=== PATIENT | male | born 1995 | race Caucasian/White ===

== ENCOUNTER 2019-06-03 14:47 | Emergency (ER) | payer BC, OTHER ==
[~2019-06-03] VITALS: Ht 172.7 cm; Wt 68.2 kg
[2019-06-03 16:16] VITALS: BP 139/81
== END 2019-06-03 16:23 | disposition home or self-care (01) ==
LOC: EDSEX 14:47 → EDBD 14:47 → M ED 14:47
DX: Z04.1 Encounter for examination and observation following transport accident (principal); V49.49XA Driver injured in collision with other motor vehicles in traffic accident, initial encounter; Y92.410 Unspecified street and highway as the place of occurrence of the external cause; F17.210 Nicotine dependence, cigarettes, uncomplicated

== ENCOUNTER → 2020-08-21 | Outpatient (CLI) | payer OTHER ==
[~2020-08-21] MED LIST: BUPR150T12 PO; BUPR300T92 PO; SUBL100I SC
== END ==
LOC: M LABSMTC 10:11
PROVIDERS: ATTEND Anesthesiology
DX: Z01.812 Encounter for preprocedural laboratory examination (principal); Z11.52 Encounter for screening for COVID-19

== ENCOUNTER 2020-08-26 07:05 | Day surgery (SDC) | payer OTHER ==
[~2020-08-26] VITALS: Ht 170.2 cm; Wt 68.0 kg
[~2020-08-26 07:05] MED LIST changes: +AMPICILLIN SOD/SULBACTAM SOD 3 GM in D5W MINI-BAG PLUS 100 ML IV ONE; +DESFLURANE 240 ML INHALANT As Ordered ONE; +dexameTHASONE 4 MG/ML 1ML VIAL (J1100 PER 1MG) IV ONE
[2020-08-26] MEDS ORDERED: LIDOCAINE 2% 100MG/5ML SDV (FOR ANES.) As Ordered ONE ×3 (07:38→08:03)
[2020-08-26] MEDS ORDERED: propofoL 200 MG/20 ML VIAL As Ordered ONE (07:38)
[2020-08-26] MEDS ORDERED: MIDAZOLAM INJ 2MG/2ML VIAL (J2250 PER 1MG) As Ordered ONE ×2 (07:39→08:32)
[2020-08-26] MEDS ORDERED: ROCURONIUM BROMIDE 50 MG/5 ML VIAL As Ordered ONE (07:39)
[2020-08-26] MEDS ORDERED: fentaNYL 100 MCG/2 ML INJECTION (J3010) As Ordered ONE ×2 (07:40→08:57)
[2020-08-26] MEDS ORDERED: dexameTHASONE 4 MG/ML 1ML VIAL (J1100 PER 1MG) As Ordered ONE (07:40)
[2020-08-26] MEDS ORDERED: ONDANSETRON 4MG/2ML VIAL As Ordered ONE (07:40)
[2020-08-26] MEDS ORDERED: CHLORHEXIDINE GLUCONATE 0.12 % 15ML UDC (PERIDEX ORAL RINSE) As Ordered ONE (08:05)
[2020-08-26] MEDS ORDERED: LIDOCAINE 2% W/ EPINEPHRINE 1.7 ML DENTAL INJ As Ordered ONE (08:05)
[2020-08-26] MEDS ORDERED: LIDOCAINE 2% JELLY 5ML TUBE As Ordered ONE (08:09)
[2020-08-26] MEDS ORDERED: OXYMETAZOLINE 0.05% NASAL SPRAY (AFRIN) As Ordered ONE (08:38)
[2020-08-26] MEDS ORDERED: SUGAMMADEX SODIUM 500 MG/5 ML VIAL (BRIDION) As Ordered ONE (10:06)
[2020-08-26] MEDS ORDERED: ACETAMINOPHEN 1000MG 100ML IV BTL (OFIRMEV) (J0131 PER 10MG) As Ordered ONE (10:11)
[2020-08-26] MEDS ORDERED: KETOROLAC 60MG 2ML VIAL As Ordered ONE (10:13)
[2020-08-26] MEDS ORDERED: oxyCODONE 5MG TAB PO PRN (10:45)
[2020-08-26] MEDS ORDERED: ONDANSETRON 4MG/2ML VIAL IV PRN (10:45)
[2020-08-26] MEDS ORDERED: HYDROMORPHONE HCL 0.5 MG/ 0.5 ML SYRINGE (J1170 PER 1) IV PRN (10:45)
[2020-08-26] MEDS ORDERED: fentaNYL 100 MCG/2 ML INJECTION (J3010) IV PRN (10:45)
[2020-08-26] MEDS ORDERED: LR 1,000 ML IV SCH (10:45)
[2020-08-26 11:10] VITALS: BP 131/80
--- NOTE | 2020-08-26 12:02 | RO ---
OPERATIVE NOTE DATE OF OPERATION: 08/26/2020 PREOPERATIVE DIAGNOSES: 1. Severe dental anxiety, history of substance abuse. 2. Hopeless and symptomatic dentition. POSTOPERATIVE DIAGNOSES: Status post: 1. Severe dental anxiety, history of substance abuse. 2. Hopeless and symptomatic dentition. PROCEDURE: Extraction of all teeth including #2, 3, 4, 5, 6, 7, 8, 9, 10, 11, 12, 13, 14, 15, 16, 17, 18, 20, 21, 22, 23, 24, 25, 26, 27, 28 and 29, 31 and full bony impacted tooth #32. SURGEON: Agusto Jaramillo DMD, MD SCIENTIST IMMUNOLOGY: ANESTHESIA: General endotracheal anesthesia via nasal ZEESHAN. SPECIMEN: Teeth for gross only. INDICATIONS FOR PROCEDURE: Ernesto is a pleasant 25-year-old male who was referred to my office for evaluation for extraction of all of his teeth. He does have severe history of dental anxiety and history of IV substance abuse and tells me that he was unconscious for the procedure. The procedure was proposed to be done under general anesthesia in operating room setting and that was what the patient wanted. All the risks, benefits and alternatives were explained to the patient. Complete history and physical was performed as well as informed consent which was signed by the patient. DESCRIPTION OF PROCEDURE: The patient was taken back to the operating room and was laid supine on the operating table. Ulnar nerve protectors were placed. Noninvasive cardiac monitors were applied. At that point the patient underwent general anesthesia and was intubated with a nasal ZEESHAN. He was prepped and draped in usual sterile fashion. Time out procedure was performed identifying patient, procedure, and any other precautions. Preoperative antibiotics and steroids were given in the IV. At this point a moist throat pack was inserted in the patient's oropharynx followed by the administration of 10 carpules of 2% Lidocaine with 1:100,000 Epinephrine as local infiltrations and blocks. At this point a sulcular full thickness flap was released in sites #2, 3, 4, 5, 6, 11, 12, 13, 14, 15, 16, 17, 18, 20, 21, 22, 27, 28, 29, 31, and 32. A small buccal trough was performed with round bur and teeth were subluxated and delivered with ease without any incident. Alveoplasty was performed to remove any bony undercuts and sharp bony edges. No sinus exposure was noted. Inferior alveolar nerve was not seen. The flaps were closed with 3-0 chromic sutures for primary flap closure. Routine forceps extractions were then performed for teeth #7, 8, 9, 10, 23, 24, 25, 26. Sockets were curetted and irrigated and papillae reapproximated. Once again, once all the teeth were removed, the oral cavity was irrigated and suctioned. The throat pack was removed. The patient was awakened from general anesthesia and taken back to the PACU for further observation. COMPLICATIONS: None to mention at the time surgery. DRAINS: No drains placed. ESTIMATED BLOOD LOSS: 20 mL.
== END 2020-08-26 11:51 | disposition home or self-care (01) ==
LOC: M SDC 07:05
PROVIDERS: ATTEND Dentist
DX: K08.89 Other specified disorders of teeth and supporting structures (principal); F40.232 Fear of other medical care; F19.11 Other psychoactive substance abuse, in remission
CPT/HCPCS: 88300; D7140; D7210; D7310; D9223; J0131; J1100; J1885; J2250; J2405; J3010